=== PATIENT | male | born 1945 | race Caucasian/White ===

== ENCOUNTER → 2016-12-13 | Outpatient (CLI) | payer MEDICARE, OTHER ==
[2016-12-13 10:11] LABS: ANION GAP 11 (5-19); BLOOD UREA NITROGEN 21 mg/dL (7-20); CALCIUM 9.5 mg/dL (8.4-10.2); CARBON DIOXIDE 31 mmol/L (22-30); CHLORIDE 100 mmol/L (98-107); CREATININE RESULT 1.07 mg/dL (0.52-1.25); GLUCOSE 103 mg/dL (75-110); POTASSIUM 4.8 mmol/L (3.6-5.0); SODIUM 141.9 mmol/L (137-145)
== END ==
LOC: OD 09:00
PROVIDERS: ATTEND Orthopaedic Surgery
DX: Z01.818 Encounter for other preprocedural examination (principal); Z01.812 Encounter for preprocedural laboratory examination
CPT/HCPCS: 36415; 80048

== ENCOUNTER 2016-12-15 05:24 | Day surgery (SDC) | payer MEDICARE, OTHER ==
[2016-12-08 12:13] LABS: ABSOLUTE BASOPHILS # (AUTO) 0.1 10^3/uL (0.0-0.2); ABSOLUTE EOSINOPHILS # (AUTO) 0.3 10^3/uL (0.0-0.6); ABSOLUTE LYMPHOCYTES (AUTO) 1.8 10^3/uL (0.5-4.7); ABSOLUTE MONOCYTES (AUTO) 0.6 10^3/uL (0.1-1.4); ABSOLUTE NEUT (AUTO) 3.3 10^3/uL (1.7-8.2); BASOPHILS % (AUTO) 0.9 % (0-2); EOSINOPHILS % (AUTO) 4.6 % (0-6); HEMOGLOBIN 14.9 g/dL (13.5-17.0); HGB HCT DIFFERENCE -0.3; LYMPHOCYTES % (AUTO) 29.8 % (13-45); MEAN CORPUSCULAR HEMOGLOBIN 31.6 pg (27.0-33.4); MEAN CORPUSCULAR HGB CONC 33.2 g/dL (32.0-36.0); MEAN CORPUSCULAR VOLUME 95 fl (80-97); MONOCYTES % (AUTO) 9.7 % (3-13); RED BLOOD COUNT 4.72 10^6/uL (4.35-5.55); WHITE BLOOD COUNT 5.9 10^3/uL (4.0-10.5)
[2016-12-08 12:20] LABS: APPEARANCE,URINE CLEAR; BILIRUBIN,URINE NEGATIVE (NEGATIVE); GLUCOSE, URINE NEGATIVE (NEGATIVE); KETONES,URINE NEGATIVE (NEGATIVE); LEUKOCYTE ESTERASE,URINE NEGATIVE (NEGATIVE); NITRITE,URINE NEGATIVE (NEGATIVE); PROTEIN,URINE NEGATIVE (NEGATIVE); URINE SPECIFIC GRAVITY 1.011; UROBILINOGEN,URINE NEGATIVE mg/dL (<2.0)
[2016-12-08 12:31] LABS: ANION GAP 14 (5-19); BLOOD UREA NITROGEN 27 mg/dL (7-20); CALCIUM 9.5 mg/dL (8.4-10.2); CARBON DIOXIDE 26 mmol/L (22-30); CHLORIDE 101 mmol/L (98-107); CREATININE RESULT 1.13 mg/dL (0.52-1.25); GLUCOSE 75 mg/dL (75-110); POTASSIUM 5.5 mmol/L (3.6-5.0); SODIUM 140.5 mmol/L (137-145)
--- NOTE | 2016-12-08 12:43 | RADIOLOGY REPORT (SQ) ---
EXAM DESCRIPTION: CHEST PA/LATERAL COMPLETED DATE/TIME: 12/08/2016 12:34 pm REASON FOR STUDY: PRE OP COMPARISON: CT chest 12/08/2016 Chest film 07/16/2015 EXAM PARAMETERS: NUMBER OF VIEWS: two views TECHNIQUE: Digital Frontal and Lateral radiographic views of the chest acquired. RADIATION DOSE: NA LIMITATIONS: none FINDINGS: LUNGS AND PLEURA: No opacities, masses or pneumothorax. No pleural effusion. MEDIASTINUM AND HILAR STRUCTURES: No masses or contour abnormalities. HEART AND VASCULAR STRUCTURES: Heart normal size. No evidence for failure. BONES: Old right shoulder replacement HARDWARE: Left-sided pacemaker OTHER: No other significant finding. IMPRESSION: NO SIGNIFICANT RADIOGRAPHIC FINDING IN THE CHEST. TECHNICAL DOCUMENTATION: JOB ID: [id number] [employer]- All Rights Reserved
--- NOTE | 2016-12-08 21:24 | EKG REPORT ---
SEVERITY:- ABNORMAL ECG - VENTRICULAR-PACED COMPLEXES FIRST DEGREE AV BLOCK NONSPECIFIC INTRAVENTRICULAR CONDUCTION DELAY POSSIBLE A FIB : Confirmed by: Imani Enriquez 08-Dec-2016 21:22:46
[~2016-12-15 05:24] MED LIST: CEFAZOLIN 2 GM/D5W RTU 2 GM/50 ML RTUPB IV SCH; LIDOCAINE 0.5% INJ-PF (5 MG/ML) 50 ML SDV INJ PRN; RINGERS SOLUTION,LACTATED 1,000 ML IV PRN
[2016-12-15] MEDS ORDERED: SODIUM BICARBONATE 8.4% INJ 50 MEQ/50 ML DISP.SYRIN ONE (06:51)
[2016-12-15] MEDS ORDERED: BUPIVACAINE HCL 0.25% /EPINEPHRINE INJ/PF 30 ML SDV ONE (06:51)
[2016-12-15] MEDS ORDERED: LIDOCAINE 1% INJ-PF (10 MG/ML) 30 ML SDV ONE (06:51)
[2016-12-15] MEDS ORDERED: BACITRACIN INJ 50,000 UNIT VIAL ONE (06:51)
[2016-12-15] MEDS ORDERED: BUPIVACAINE INJ/PF LIPOSOME/PF 266 MG/20 ML SDV ONE (06:52)
[2016-12-15] MEDS ORDERED: FENTANYL CITRATE INJ/PF 250 MCG/5 ML AMPULE ONE (07:10)
[2016-12-15] MEDS ORDERED: ACETAMINOPHEN 100 ML IV ONE (07:11)
[2016-12-15] MEDS ORDERED: PROPOFOL INJ 200 MG/20 ML VIAL IV ONE (07:11)
[2016-12-15] MEDS ORDERED: EPHEDRINE SULFATE INJ 50 MG/1 ML AMPULE ONE (07:11)
[2016-12-15] MEDS ORDERED: MIDAZOLAM 2 MG/2 ML INJ ONE (07:11)
[2016-12-15] MEDS ORDERED: HYDROMORPHONE HCL INJ/PF 2 MG/ML AMPULE ONE (07:13)
[2016-12-15] MEDS ORDERED: BUPIVACAINE HCL 0.5 % INJ/PF 30 ML SDV ONE (07:22)
[2016-12-15] MEDS ORDERED: PROMETHAZINE HCL INJ 25 MG/1 ML VIAL IV PRN ×2 (08:45)
[2016-12-15] MEDS ORDERED: FENTANYL CITRATE INJ/PF 100 MCG/2 ML AMPUL IV PRN ×3 (08:45)
[2016-12-15] MEDS ORDERED: DIPHENHYDRAMINE HCL 50 MG/ML VIAL IV PRN (08:45)
[2016-12-15] MEDS ORDERED: MORPHINE SULFATE 10 MG/ML INJ IV PRN (08:45)
[2016-12-15] MEDS ORDERED: MEPERIDINE HCL/PF INJ 25 MG/1 ML DISP.SYRIN IV PRN (08:45)
[2016-12-15] MEDS ORDERED: OXYCODONE-ACETAMINOPHEN 5-325 MG TABLET PO PRN ×2 (08:45)
--- NOTE | 2016-12-15 10:14 | OPERATIVE REPORT E ---
Operative Report NAME: PETER LOGAN : 1945 AGE: 71Y DATE OF SURGERY: 12/15/2016 ROOM: PREOPERATIVE DIAGNOSIS: Chronic back pain and radiculitis. POSTOPERATIVE DIAGNOSIS: Chronic back pain and radiculitis. PROCEDURE: T11 partial laminectomy and placement of spinal cord stimulator paddle lead as well as placement of generator and testing of leads. SURGEON: LAM HOGUE M.D. SURGICAL SERVICES ASST: None. ANESTHESIA: General endotracheal intubation. ESTIMATED BLOOD LOSS: 100 mL. INDICATIONS: Patient is a 71-year-old male who has failed all conservative management. He has had prior back surgery. After discussion with the patient of the risks, indications, alternatives and having tried a temporary spinal cord stimulator trial, having had significant results, the decision was made to proceed with placement of the actual permanent paddle lead and generator. I discussed with the patient the risks, benefits and alternatives, including the risk of infection, bleeding, damage to nerves or blood vessels, the risk of dural tear and spinal headache, the risk of continued back pain, the risk of needing more surgery down the road, the risk of infection and bleeding. The patient understood these risks and wished to pursue surgical intervention. OPERATIVE TECHNIQUE: The patient was brought into the room, placed under anesthesia, placed in a prone position on the radiolucent OSI table with a Caleb frame on it. C-arm fluoroscopy in the AP position marked the T11-T12 level and after completion of prepping and draping the patient received 2 g of Ancef within an hour of cut time, had SCDs and a warm blanket placed on him. CellSaver was utilized. A midline incision was carried down through the skin after completion of prepping and draping down onto the T11 and T12 lamina through the thoracic lumbodorsal fascia. A Liang was placed at the T11-T12 level to venice that level. Upon marking that level, the spinous process of T11 was resected. A partial laminectomy was done at T12 as well and ligamentum flavum was resected, and the paddle was passed up into position after placing the trial paddle, found to pass freely, and then upon verification of position using C-arm fluoroscopy, the top of the paddle lead extended up just above the T9 level as per the trial, more towards the left than the right because the patient had left-sided radiculitis. Then, the 0 Ethibond was utilized, passed through the spinous process of T12 at 2 different sites, and the suture sleeves which were placed over the paddle lead wires are anchored into the bone using 0 Ethibond on both wires. Then, the small bleeders were coagulated utilizing bipolar and unipolar electrocautery and then the wound was irrigated with a liter of Bacitracin irrigation. Then, the pocket which the patient requested be in the right flank was created and electrocautery used to coagulate small bleeders. Then the tunnel device was used to tunnel from that area all the way to where the leads are and the wires are passed down to that area. The fascia at the laminectomy site is reapproximated with 0 Vicryl, subcu with 2-0 Vicryl, and the skin with 3-0 Monocryl. The wires were tunneled back to the pocket and the generator was placed, connected and tested, found to be working well with good contact at all the leads and on the paddle. Then, the generator was placed in position with wires below the generator and the subcu was reapproximated with 2-0 Vicryl and the skin with a running subcuticular 3-0 Monocryl closure. The wound was dressed with Benzoin, Steri-Strips, 4 x 4 and tape. The patient tolerated the procedure well. Please note, the subcuticular and deep tissues are infiltrated with 0.5% Marcaine plain mixed with 1.3% Exparel into the deep and superficial soft tissues. Estimated blood loss was 100 mL. The patient was not given back any CellSaver as the blood loss was less than expected. The patient's wound was dressed in 4 x 4s and tape. The patient's condition is stable. The patient was brought to the supine position, extubated, and brought to the recovery room. DICTATING PHYSICIAN: LAM HOGUE M.D. [id number] PHY#: [id number] ID: [id number] JOB#: [id number] ACCT: [id number] cc:LAM HOGUE M.D. >
[2016-12-15] MEDS ORDERED: HYDROCODONE/ACETAMINOPHEN 5-325 MG TABLET PO ONE (10:35)
[2016-12-15] MEDS ORDERED: HYDROCODONE/ACETAMINOPHEN 5-325 MG TABLET ONE (10:37)
[2016-12-15] MEDS ORDERED: HYDROCODONE/ACETAMINOPHEN 5-325 MG TABLET PO PRN ×2 (10:45)
[2016-12-15] MEDS ORDERED: LIDOCAINE 2% INJ-PF (20 MG/ML) 10 ML AMPUL ONE (11:52)
[2016-12-15] MEDS ORDERED: ONDANSETRON HCL INJ/PF 4 MG/2 ML SDV ONE (11:52)
[2016-12-15] MEDS ORDERED: SUCCINYLCHOLINE CHLORIDE INJ 200 MG/10 ML VIAL ONE (11:52)
[2016-12-15] MEDS ORDERED: ROCURONIUM BROMIDE INJ 50 MG/5 ML VIAL IV ONE (11:52)
[2016-12-15 12:30] VITALS: BP 115/67
--- NOTE | 2016-12-15 13:17 | RADIOLOGY REPORT (SQ) ---
EXAM DESCRIPTION: L SPINE 2 VIEWS; NO CHG FLUORO COMPLETED DATE/TIME: 12/15/2016 9:35 am REASON FOR STUDY: LAMINECTOMY; LAMINECTOMY/SPINAL STIM WITH GUIDED FLUORO IN OR G89.29 OTHER CHRONI C PAIN M54.17 RADICULOPATHY, LUMBOSACRAL REGION COMPARISON: CT lumbar myelogram 11/24/2010 FLUOROSCOPY TIME: 0.2 minutes 4 digital C-arm images saved to PACS. TECHNIQUE: Intra-operative images acquired during surgical procedure to evaluate progress. NUMBER OF IMAGES: Cine fluoroscopic images. LIMITATIONS: None. FINDINGS: 4 digital C-arm images are submitted during lumbar dorsal column stimulator electrode plac ement. Please see the operative report for further details IMPRESSION: Intra procedural imaging and fluoro COMMENT: Quality ID 145: Final reports for procedures using fluoroscopy that document radiation exp osure indices, or exposure time and number of fluorographic images (if radiation exposure indices are not available) Please consult full operative report of the attending physician for description of the procedure. TECHNICAL DOCUMENTATION: JOB ID: [id number] [employer]- All Rights Reserved
== END 2016-12-15 11:45 | disposition home or self-care (01) ==
LOC: OROUT 05:24 → EDSTATUS 07:30 → OROUT 11:45
PROVIDERS: ATTEND Orthopaedic Surgery
PROC: 0JH70MZ Insertion of Stimulator Generator into Back Subcutaneous Tissue and Fascia, Open Approach (ICD-10-PCS; principal; 2016-12-15 07:30)
PROC: 00HU0MZ Insertion of Neurostimulator Lead into Spinal Canal, Open Approach (ICD-10-PCS; 2016-12-15 07:30)
DX: G89.29 Other chronic pain (principal); M48.07 Spinal stenosis, lumbosacral region; M51.16 Intervertebral disc disorders with radiculopathy, lumbar region; M51.36 Other intervertebral disc degeneration, lumbar region; M54.5 Low back pain; M54.9 Dorsalgia, unspecified; I10 Essential (primary) hypertension; K21.9 Gastro-esophageal reflux disease without esophagitis; Z87.891 Personal history of nicotine dependence; M06.9 Rheumatoid arthritis, unspecified; Z95.0 Presence of cardiac pacemaker; Z86.73 Personal history of transient ischemic attack (TIA), and cerebral infarction without residual deficits; Z88.2 Allergy status to sulfonamides; Z79.82 Long term (current) use of aspirin; Z79.1 Long term (current) use of non-steroidal anti-inflammatories (NSAID); Z85.01 Personal history of malignant neoplasm of esophagus; Z88.1 Allergy status to other antibiotic agents; Z88.0 Allergy status to penicillin
CPT/HCPCS: 63655; 63685; C1778; 300; 36415; 71020; 72100; 80048; 81001; 84132; 85025; 93005; 93010; C1822; C9290; J0131; J0330; J0690; J1170; J2250; J2405; J2704; J3010; J3490

== ENCOUNTER → 2018-02-01 | Outpatient (CLI) | payer MEDICARE, OTHER ==
[2018-02-01 08:52] LABS: ABSOLUTE EOSINOPHILS # (AUTO) 0.2 10^3/uL (0.0-0.6); ABSOLUTE LYMPHOCYTES (AUTO) 1.4 10^3/uL (0.5-4.7); ABSOLUTE MONOCYTES (AUTO) 0.5 10^3/uL (0.1-1.4); ABSOLUTE NEUT (AUTO) 4.6 10^3/uL (1.7-8.2); BASOPHILS % (AUTO) 0.4 % (0-2); EOSINOPHILS % (AUTO) 2.6 % (0-6); HEMATOCRIT 40.6 % (37.9-51.0); HEMOGLOBIN 13.9 g/dL (13.5-17.0); LYMPHOCYTES % (AUTO) 20.4 % (13-45); MEAN CORPUSCULAR HEMOGLOBIN 31.7 pg (27.0-33.4); MEAN CORPUSCULAR HGB CONC 34.3 g/dL (32.0-36.0); MEAN CORPUSCULAR VOLUME 93 fl (80-97); MONOCYTES % (AUTO) 7.2 % (3-13); PLATELET COUNT 231 10^3/uL (150-450); RED BLOOD COUNT 4.38 10^6/uL (4.35-5.55); RED CELL DISTRIBUTION WIDTH 13.9 % (11.5-14.0); SEGMENTED NEUTROPHILS % (AUTO) 69.4 % (42-78); TOTAL CELLS COUNTED % (AUTO) 100 %; WHITE BLOOD COUNT 6.6 10^3/uL (4.0-10.5)
--- NOTE | 2018-02-01 08:52 | RADIOLOGY REPORT (SQ) ---
EXAM DESCRIPTION: U/S ABD AORTIC SCREENING COMPLETED DATE/TIME: 02/01/2018 8:37 am REASON FOR STUDY: CHRONIC FATIGUE, UNSPECIFIED R53.82 CHRONIC FATIGUE, UNSPECIFIED COMPARISON: None. TECHNIQUE: Static and dynamic grayscale images acquired of the aorta and stored on PACs. Selected co matthew Doppler and spectral images recorded. LIMITATIONS: None. FINDINGS: AORTIC CALIBER MAXIMAL PROXIMAL: 1.6 cm. MID: 2.4 cm. DISTAL: 2.4 cm. ILIAC DIAMETER RIGHT: 2.1 cm. LEFT: 2.4 cm. OTHER: No other significant finding. IMPRESSION: NO ABDOMINAL AORTIC ANEURYSM. COMMENT: Aorta screening examinations categories: Negative - less than 3 cm. TECHNICAL DOCUMENTATION: JOB ID: [id number] [employer]- All Rights Reserved Reading location - IP/workstation name: [email or web address]
[2018-02-01 09:11] LABS: ALANINE AMINOTRANSFERASE 32 U/L (21-72); ALBUMIN 4.2 g/dL (3.5-5.0); ALKALINE PHOSPHATASE 82 U/L (38-126); ANION GAP 10 (5-19); ASPARTATE AMINO TRANSFERASE 31 U/L (17-59); BILIRUBIN,DIRECT 0.2 mg/dL (0.0-0.4); BILIRUBIN,TOTAL 0.4 mg/dL (0.2-1.3); BLOOD UREA NITROGEN 23 mg/dL (7-20); CALCIUM 9.4 mg/dL (8.4-10.2); CARBON DIOXIDE 31 mmol/L (22-30); CHLORIDE 102 mmol/L (98-107); CHOLESTEROL 122.65 mg/dL (0-200); GLUCOSE 102 mg/dL (75-110); POTASSIUM 4.3 mmol/L (3.6-5.0); TOTAL PROTEIN 7.3 g/dL (6.3-8.2); TRIGLYCERIDES 78 mg/dL (<150)
[2018-02-01 09:22] LABS: DIRECT LDL 63 mg/dL (<100)
[2018-02-01 10:03] LABS: ERYTHROCYTE SEDIMENTATION RATE 26 mm/hr (0-20)
[2018-02-02 16:02] LABS: PROSTATE SPECIFIC ANTIGEN 6.1 ng/mL (0.0-4.0); PSA % FREE 12.1 % (.); PSA FREE 0.74 ng/mL
== END ==
LOC: RAD 07:18
PROVIDERS: ATTEND Internal Medicine
DX: R53.82 Chronic fatigue, unspecified (principal); I10 Essential (primary) hypertension; I71.4 Abdominal aortic aneurysm, without rupture; E78.2 Mixed hyperlipidemia; N13.8 Other obstructive and reflux uropathy; N40.1 Benign prostatic hyperplasia with lower urinary tract symptoms; F32.9 Major depressive disorder, single episode, unspecified; Z86.73 Personal history of transient ischemic attack (TIA), and cerebral infarction without residual deficits
CPT/HCPCS: 36415; 76706; 80053; 80061; 82652; 83036; 84154; 84443; 85025; 85652

== ENCOUNTER 2018-02-27 15:42 | Emergency (ER) | payer MEDICARE, OTHER ==
[2018-02-27] MEDS ORDERED: CLINDAMYCIN HCL 150 MG CAPSULE PO ONE (17:03)
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
[2018-02-27 18:16] VITALS: BP 145/99
== END 2018-02-27 18:17 | disposition home or self-care (01) ==
LOC: ER 15:42
DX: L03.116 Cellulitis of left lower limb (principal); S81.012A Laceration without foreign body, left knee, initial encounter; W28.XXXA Contact with powered lawn mower, initial encounter; Y93.H1 Activity, digging, shoveling and raking; Y92.007 Garden or yard of unspecified non-institutional (private) residence as the place of occurrence of the external cause; Z88.3 Allergy status to other anti-infective agents; Z88.0 Allergy status to penicillin; Z86.73 Personal history of transient ischemic attack (TIA), and cerebral infarction without residual deficits; Z90.49 Acquired absence of other specified parts of digestive tract
CPT/HCPCS: 99283; A9270

== ENCOUNTER → 2018-05-15 | Outpatient (CLI) | payer MEDICARE, OTHER ==
[2018-05-15 09:10] LABS: CHOLESTEROL 118.54 mg/dL (0-200); TRIGLYCERIDES 77 mg/dL (<150)
[2018-05-15 09:21] LABS: DIRECT LDL 73 mg/dL (<100)
== END ==
LOC: OD 07:40
PROVIDERS: ATTEND Internal Medicine
DX: E78.5 Hyperlipidemia, unspecified (principal)
CPT/HCPCS: 36415; 80061

== ENCOUNTER → 2018-05-22 | Outpatient (CLI) | payer MEDICARE, OTHER ==
--- NOTE | 2018-05-22 11:40 | RADIOLOGY REPORT (SQ) ---
EXAM DESCRIPTION: CERV SP 4 OR 5 VIEWS COMPLETED DATE/TIME: 05/22/2018 10:47 am REASON FOR STUDY: CERVICAL ARTHRITIS COMPARISON: 05/18/2014 cervical spine plain films NUMBER OF VIEWS: Five views. TECHNIQUE: AP, lateral, obliques and odontoid radiographic images acquired of the cervical spine. LIMITATIONS: None. FINDINGS: MINERALIZATION: Normal. ALIGNMENT: Straightening of cervical lordosis VERTEBRAE: Vertebral bodies of normal height. DISCS: High-grade disc space loss of height at C3-4, C5-6, and C6-7 FORAMINA: Mild right foraminal narrowing at C4-5. Mild left foraminal narrowing at C3-4, C4-5, C5-6 and C6-7. LATERAL AND POSTERIOR ELEMENTS: Facets, lateral masses and spinous processes without significant find ings. HARDWARE: Surgical clips along the right paratracheal region at the thoracic inlet SOFT TISSUES: No masses or calcifications. Lung apices clear. OTHER: No other significant finding. IMPRESSION: NO SIGNIFICANT RADIOGRAPHIC FINDING IN THE CERVICAL SPINE. TECHNICAL DOCUMENTATION: JOB ID: [id number] [employer]- All Rights Reserved Reading location - IP/workstation name: [email or web address]
== END ==
LOC: RAD 10:34
PROVIDERS: ATTEND Internal Medicine
DX: M13.88 Other specified arthritis, other site (principal)
CPT/HCPCS: 72050

== ENCOUNTER → 2018-07-14 | Outpatient (CLI) | payer MEDICARE, OTHER ==
[~2018-07-14] MED LIST changes: +ALBUTEROL SULFATE 0.083% NEB 2.5 MG/3 ML AMPUL NEB ONE; -CEFAZOLIN 2 GM/D5W RTU 2 GM/50 ML RTUPB IV SCH; -LIDOCAINE 0.5% INJ-PF (5 MG/ML) 50 ML SDV INJ PRN; -RINGERS SOLUTION,LACTATED 1,000 ML IV PRN
--- NOTE | 2018-07-17 15:30 | Pulmonary Function Test ---
Pulmonary Function Test Date of Procedure:: 07/17/18 INDICATION:: COPD Referring Provider: Dr. Tim Jane Passenger Flagman: Yamile Tapia CUSTOMER GREETER, CORRECTIVE THERAPIST - Report Spirometry: FVC 3.94 L 124% postbronchodilator 4.37 L 138% FEV1 2.64 L 107% postbronchodilator 2.91 L 118% FEV1/FVC % 67 postbronchodilator 67 predicted 79 FEF 25-75% 1.17 L 47% postbronchodilator 1.48 L 60% Lung Volume: Total lung capacity 5.82 L 106% Vital capacity 4.04 L 128% Inspiratory capacity 3.18 L FRC in 2 2.64 L 83% RV 1.77 L 75% RV/TLC % 30 predicted 42 Diffusion Capactity: Diffusion capacity 16.7 96% DLCO/VA 3.67 103% Impression: Mild obstructive ventilatory defect is inferred by the decrease in flow in FEF 25-75% no significant response to bronchodilator therapy restrictive ventilatory defect. No hyperinflation or air trapping. Normal diffusion capacity.
== END ==
LOC: RT 13:00
PROVIDERS: ATTEND Internal Medicine
DX: J44.9 Chronic obstructive pulmonary disease, unspecified (principal)
CPT/HCPCS: 94729; 94727; 94060; A9270

== ENCOUNTER → 2018-08-31 | Outpatient (CLI) | payer MEDICARE, OTHER ==
[2018-08-31 08:37] LABS: CHOLESTEROL 161.26 mg/dL (0-200); TRIGLYCERIDES 82 mg/dL (<150)
[2018-08-31 08:56] LABS: DIRECT LDL 97 mg/dL (<100)
== END ==
LOC: OD 07:21
PROVIDERS: ATTEND Internal Medicine
DX: E78.5 Hyperlipidemia, unspecified (principal)
CPT/HCPCS: 36415; 80061

== ENCOUNTER → 2018-12-01 | Outpatient (CLI) | payer MEDICARE, OTHER ==
[2018-12-01 09:45] LABS: ALANINE AMINOTRANSFERASE 20 U/L (21-72); ALBUMIN 4.1 g/dL (3.5-5.0); ALKALINE PHOSPHATASE 92 U/L (38-126); ASPARTATE AMINO TRANSFERASE 22 U/L (17-59); BILIRUBIN,TOTAL 0.6 mg/dL (0.2-1.3); CHOLESTEROL 157.02 mg/dL (0-200); TOTAL PROTEIN 6.7 g/dL (6.3-8.2); TRIGLYCERIDES 110 mg/dL (<150)
[2018-12-01 09:56] LABS: DIRECT LDL 97 mg/dL (<100)
== END ==
LOC: LAB 08:30
PROVIDERS: ATTEND Internal Medicine
DX: E78.5 Hyperlipidemia, unspecified (principal); R94.5 Abnormal results of liver function studies
CPT/HCPCS: 36415; 80061; 80076

== ENCOUNTER → 2019-04-02 | Outpatient (CLI) | payer MEDICARE, OTHER ==
--- NOTE | 2019-04-02 16:08 | XCELERA REPORT ---
[address] [address] Upper Extremity Venous Evaluation Name: PETER LOGAN Age: 74 yrs Gender: Male : 1945 Patient Status: Outpatient Patient Location: Study Date: 04/02/2019 02:42 PM Procedure: Unilateral duplex scan of the left upper extremity veins was performed, including responses to compression and other maneuvers. Reason For Study: LUE PAIN/SWELLING Ordering Physician: SARAH EDMONDS Performed By: Greg Paige Left Sided Venous Evaluation Normal vessel filling wall to wall, compression and augmentation as well as Colour flow down to the forarm veins. Interpretation Summary No duplex evidence of DVT or obstruction in the left upper extremity. : SARAH EDMONDS > Jose Roberto Zambrano
== END ==
LOC: SP 14:22
PROVIDERS: ATTEND Internal Medicine
DX: M79.609 Pain in unspecified limb (principal); M79.89 Other specified soft tissue disorders
CPT/HCPCS: 93971

== ENCOUNTER → 2019-04-27 | Outpatient (CLI) | payer MEDICARE, OTHER ==
--- NOTE | 2019-04-27 14:13 | RADIOLOGY REPORT (SQ) ---
EXAM DESCRIPTION: NM WHOLE BODY BONE SCAN COMPLETED DATE/TIME: 04/27/2019 12:59 pm REASON FOR STUDY: C61 MALIGNANT NEOPLASM OF PROSTATE C61 MALIGNANT NEOPLASM OF PROSTATE COMPARISON: No available imaging studies for comparison. RADIONUCLIDE AND DOSE: 20.7 millicuries Tc99m HDP. The route of agent administration: Intravenous. ADDITIONAL DRUGS AND DOSES: None. TECHNIQUE: Routine delayed images at 3 hour post radionuclide injection acquired of the bony skeleto n including anterior and posterior whole-body projections and additional focused images as needed. LIMITATIONS: None. FINDINGS: BONES: Mild uptake in the lumbar spine consistent with degenerative disease. There is upt kj in both knees and right ankle. No findings to suggest metastatic disease. KIDNEYS: Symmetric excretion without obstruction. OTHER: No other significant finding. IMPRESSION: Scattered areas of skeletal uptake consistent with degenerative disease. No evidence of metastatic disease. COMMENT: Quality measure 147: Current bone scan is compared with any available plain radiographs, p rior bone scans, and CT/MRI. TECHNICAL DOCUMENTATION: JOB ID: [id number] [employer]- All Rights Reserved Reading location - IP/workstation name: [email or web address]
== END ==
LOC: RAD 08:21
PROVIDERS: ATTEND Internal Medicine
DX: C61 Malignant neoplasm of prostate (principal)
CPT/HCPCS: 78306; A9561; Q9969

== ENCOUNTER → 2019-07-20 | Outpatient (CLI) | payer MEDICARE, OTHER ==
[2019-07-20 15:15] LABS: HEMOGLOBIN 12.6 g/dL (13.5-17.0); MEAN CORPUSCULAR HEMOGLOBIN 32.9 pg (27.0-33.4); MEAN CORPUSCULAR HGB CONC 34.1 g/dL (32.0-36.0); MEAN CORPUSCULAR VOLUME 97 fl (80-97); PLATELET COUNT 234 10^3/uL (150-450); RED BLOOD COUNT 3.83 10^6/uL (4.35-5.55); WHITE BLOOD COUNT 4.2 10^3/uL (4.0-10.5)
[2019-07-20 15:34] LABS: ALBUMIN 4.2 g/dL (3.5-5.0); ALKALINE PHOSPHATASE 78 U/L (38-126); ANION GAP 8 (5-19); ASPARTATE AMINO TRANSFERASE 29 U/L (17-59); BILIRUBIN,DIRECT 0.3 mg/dL (0.0-0.4); BILIRUBIN,TOTAL 0.4 mg/dL (0.2-1.3); BLOOD UREA NITROGEN 23 mg/dL (7-20); CALCIUM 9.3 mg/dL (8.4-10.2); CARBON DIOXIDE 31 mmol/L (22-30); CHLORIDE 99 mmol/L (98-107); GLUCOSE 64 mg/dL (75-110); POTASSIUM 4.2 mmol/L (3.6-5.0); TOTAL PROTEIN 7.2 g/dL (6.3-8.2)
== END ==
LOC: OD 14:22
PROVIDERS: ATTEND Dermatology
DX: B35.1 Tinea unguium (principal)
CPT/HCPCS: 36415; 80053; 85027

== ENCOUNTER 2020-02-19 12:41 | Day surgery (SDC) | payer MEDICARE, OTHER ==
[~2020-02-19 12:41] MED LIST changes: +ACETAMINOPHEN 325 MG TABLET PO PRN; -ALBUTEROL SULFATE 0.083% NEB 2.5 MG/3 ML AMPUL NEB ONE; +IBUPROFEN 800 MG in NORMAL SALINE 250 ML IV PRN; +VANCOMYCIN HCL 1,000 MG in DEXTROSE 5%-WATER 250 ML IV PRN
[2020-02-19] MEDS ORDERED: BUPIVACAINE HCL 0.25 % INJ/PF (2.5 MG/1 ML) 30 ML VIAL ONE (13:15)
[2020-02-19] MEDS ORDERED: LIDOCAINE 1% INJ-PF (10 MG/ML) 30 ML SDV ONE (13:15)
[2020-02-19] MEDS ORDERED: PROPOFOL INJ 200 MG/20 ML VIAL IV ONE (14:26)
[2020-02-19] MEDS ORDERED: MIDAZOLAM 2 MG/2 ML INJ ONE (14:26)
[2020-02-19] MEDS ORDERED: FENTANYL CITRATE INJ/PF 100 MCG/2 ML AMPUL ONE (14:26)
[2020-02-19] MEDS ORDERED: KETAMINE HCL INJ 500 MG/10 ML VIAL ONE (14:26)
[2020-02-19] MEDS ORDERED: ONDANSETRON HCL INJ/PF 4 MG/2 ML SDV IV PRN (15:00)
[2020-02-19] MEDS ORDERED: DIPHENHYDRAMINE HCL 50 MG/ML VIAL IV PRN (15:00)
[2020-02-19] MEDS ORDERED: MEPERIDINE HCL/PF INJ 25 MG/1 ML DISP.SYRIN IV PRN (15:00)
[2020-02-19] MEDS ORDERED: PROMETHAZINE HCL INJ 25 MG/1 ML VIAL IV PRN (15:00)
--- NOTE | 2020-02-19 15:32 | Discharge Summary ---
Discharge Summary (SDC) - Discharge Final Diagnosis: Prostate cancer Date of Surgery: 02/19/20 Discharge Date: 02/19/20 Condition: Stable Treatment or Instructions: Discharge home. Diet as tolerated. Activity: Nonstrenuous. Okay to shower starting on . No tub baths or swimming pools x2 weeks. [place] 5/325 mg p.o. every 6 hours as needed for pain. [facility]. Referrals: RANDI OBRIEN MD [Primary Care Provider] - Discharge Diet: As Tolerated Respiratory Treatments at Home: Deep Breathing/Coughing, Incentive Spirometer Discharge Activity: Balance Activity w/Rest Home Care Assistance: None Needed Report the Following to Your Physician Immediately: Shortness of Breath, Nausea, Vomiting, Increase in Pain, Fever over 101 Degrees, Unusual Bleeding, Redness
--- NOTE | 2020-02-19 15:37 | Operative Report ---
Nonrecallable Operative Report DATE OF SURGERY: 02/19/20 PREOPERATIVE DIAGNOSIS: Prostate cancer POSTOPERATIVE DIAGNOSIS: Same as above OPERATION: 1. Ultrasound-guided central venous puncture. 2. Right internal jugular vein Mediport placement. SURGEON: TALYA SMITH ANESTHESIA: LMAC TISSUE REMOVED OR ALTERED: None COMPLICATIONS: None apparent ESTIMATED BLOOD LOSS: Minimal PROCEDURE: Drains/implants: Right internal jugular vein Mediport placement. Procedure in detail: After informed consent was obtained, the patient was brought to the operating room and laid in the Trendelenburg position. The area of the neck and chest were prepped and draped in a normal sterile fashion. The ultrasound used to identify the right internal jugular vein. It was compressible with normal flow. Under direct ultrasound guidance, the right internal jugular vein was cannulated. This was done using the supplied access needle. Dark venous, nonpulsatile blood was returned in the syringe. The wire was inserted into the vein easily. The wire was confirmed to be within the lumen of the vein using the ultrasound device, as well as fluoroscopy. Picture documentation was obtained, and placed on the chart. Next, an incision was created in the right chest wall to accommodate the Mediport hub. The catheter was tunneled from the Mediport hub site to the needle insertion site. The dilator and breakaway sheath were then inserted over the wire. This was done under direct fluoroscopic guidance. The wire and dilator were then removed, leaving the breakaway sheath within the SVC. The catheter was inserted into the sheath. The sheath was cracked and pulled away, leaving the catheter within the SVC. The catheter was pulled back to an appropriate level. The catheter was then trimmed to length and attached to the Mediport hub. The hub was buried in the pocket. The hub was sutured to the chest wall using 3-0 Vicryl suture in simple interrupted fashion. The subcutaneous tissues were then closed using 3-0 Vicryl suture in simple running fashion. The overlying skin was closed using 4- 0 Vicryl Rapide suture in subcuticular fashion. The Mediport was then accessed and flushed with heparinized saline. Dressings were placed, and the procedure was concluded. All sponge, instrument, and needle counts were correct x2. Condition: Stable.
[2020-02-19] MEDS ORDERED: HYDROCODONE/ACETAMINOPHEN 5-325 MG TABLET PO PRN (15:38)
--- NOTE | 2020-02-19 16:12 | RADIOLOGY REPORT (SQ) ---
EXAM DESCRIPTION: FLUORO/CV PLACEMENT IMAGES COMPLETED DATE/TIME: 02/19/2020 3:28 pm REASON FOR STUDY: PORTACATH PLCMT RIGHT SIDE ASSISTED WITH FLUORO IN OR C61 MALIGNANT NEOPLASM OF P ROSTATE COMPARISON: None. FLUOROSCOPY TIME: 1.0 minute 3 images saved to PACS. TECHNIQUE: Intra-operative images acquired during surgical procedure to evaluate progress. NUMBER OF IMAGES: 3 LIMITATIONS: None. FINDINGS: Right-sided port placement tip overlying SVC. IMPRESSION: IMAGE(S) OBTAINED DURING PROCEDURE. COMMENT: Quality ID [id number]: Final reports for procedures using fluoroscopy that document radiation exp osure indices, or exposure time and number of fluorographic images (if radiation exposure indices are not available) Please consult full operative report of the attending physician for description of the procedure. TECHNICAL DOCUMENTATION: JOB ID: [id number] [employer]- All Rights Reserved Reading location - IP/workstation name: [email or web address]
--- NOTE | 2020-02-19 16:18 | RADIOLOGY REPORT (SQ) ---
EXAM DESCRIPTION: CHEST SINGLE VIEW IMAGES COMPLETED DATE/TIME: 02/19/2020 4:05 pm REASON FOR STUDY: [facility] COMPARISON: 07/16/2015 EXAM PARAMETERS: NUMBER OF VIEWS: One view. TECHNIQUE: Single frontal radiographic view of the chest acquired. RADIATION DOSE: NA LIMITATIONS: None. FINDINGS: LUNGS AND PLEURA: Low lung volumes limits examination. No opacities, masses or pneumotho rax. No pleural effusion. MEDIASTINUM AND HILAR STRUCTURES: No masses. Contour normal. HEART AND VASCULAR STRUCTURES: Heart normal in size. Normal vasculature. BONES: No acute findings. HARDWARE: Right Rhdtwe-H-Tsjn catheter with the tip in the region of the right brachiocephalic -SVC junction. Cardiac pacemaker, stable finding. Partially visualized spinal stimulator and reversed to stnoey right shoulder prostheses. Surgical metallic clips at the base of the neck on the right. OTHER: No other significant finding. IMPRESSION: 1. Right Gkuzaq-U-Peby catheter, tip at the region of the right brachiocephalic vein-SV C. . No evidence of pneumothorax. 2. No acute pulmonary findings. TECHNICAL DOCUMENTATION: JOB ID: [id number] 2010 [employer]- All Rights Reserved Reading location - IP/workstation name: [email or web address]
[2020-02-19 16:43] VITALS: BP 137/89
== END 2020-02-19 16:45 | disposition home or self-care (01) ==
LOC: OROUT 12:41
PROVIDERS: ATTEND Surgery
DX: C61 Malignant neoplasm of prostate (principal); I10 Essential (primary) hypertension; I49.5 Sick sinus syndrome; I25.10 Atherosclerotic heart disease of native coronary artery without angina pectoris; J44.9 Chronic obstructive pulmonary disease, unspecified; M54.9 Dorsalgia, unspecified; G89.29 Other chronic pain; F12.90 Cannabis use, unspecified, uncomplicated; Z79.82 Long term (current) use of aspirin; Z79.899 Other long term (current) drug therapy; Z85.01 Personal history of malignant neoplasm of esophagus; Z86.73 Personal history of transient ischemic attack (TIA), and cerebral infarction without residual deficits; Z03.818 Encounter for observation for suspected exposure to other biological agents ruled out
CPT/HCPCS: 36561; 71045; 77001; 00532; C1788; U0003; A9270; J2250; J3010; J3490; J7060; J7050; J3370; J1642; J1741; C9803; 532; 87635; J2704